=== PATIENT | female | born 1955 | race Hispanic/Latino ===

== ENCOUNTER 2017-05-17 07:18 | Emergency (ER) | payer OTHER ==
--- NOTE | 2017-05-17 07:27 | ED.PDOC ---
History of Present Illness - General Stated Complaint: RECTAL PAIN Time Seen by Provider: 05/17/17 07:20 Source: patient Exam Limitations: no limitations Additional Information: PT C/O SEVERE RECTAL PAIN SINCE LAST PM. HX SIGNIFICANT FOR COLON CA WITH RESECTION IN 2010. HAS BEEN CLEAR SINCE. ON 04/14/2017 PT HAD COLOSTOMY REVERSAL. WAS DOING WELL UNTIL 05/13/17 WHEN SHE HAD HER PORT REMOVED. SHE DEVELOPED SOME RECTAL PAIN AFTER SURGERY BUT BECAME MUCH MORE SEVERE LAST PM. PAIN IS SHARP, SPASMOTIC IN NATURE. - History of Present Illness Timing/Duration: other - LAST NIGHT Severity: severe Improving Factors: nothing Associated Symptoms: denies symptoms Allergies/Adverse Reactions: Allergies NO KNOWN ALLERGY Allergy (Unverified 05/17/17 07:33) Home Medications: Ambulatory Orders Albuterol 2 mg/5 ml [Proventil] 1 neb 05/17/17 Docusate Sodium [Colace Cap] 100 mg PO BID 05/17/17 HYDROcodone 10MG/APAP 325MG [[facility] 10/325] 2 tablet PO Q4HR 05/17/17 Insulin Glargine [Lantus Solostar] 60 units SC DAILY 05/17/17 Lidocaine 4% Topical [Xylocaine 4% Topical] 4 % TOP QID PRN #1 bttl 05/17/17 Lisinopril 2.5 mg PO DAILY 05/17/17 Loratadine [Claritin] 10 mg PO DAILY 05/17/17 Meloxicam [Mobic] 15 mg PO DAILY 05/17/17 Metformin HCl 1,000 mg PO BID 05/17/17 Review of Systems - Review of Systems Constitutional: Denies: chills, fever EENTM: States: no symptoms reported Respiratory: States: no symptoms reported Cardiology: States: no symptoms reported Gastrointestinal/Abdominal: States: constipation. Denies: abdominal pain, diarrhea, nausea, vomiting Genitourinary: States: no symptoms reported. Denies: dysuria, frequency, hematuria Skin: States: no symptoms reported Neurological: States: no symptoms reported Endocrine: States: no symptoms reported Hematologic/Lymphatic: States: no symptoms reported Past Medical History (General) - Patient Medical History Hx Seizures: No Hx Stroke: No Hx Dementia: No Hx Asthma: No Hx of COPD: No Hx Cardiac Disorders: No Hx Congestive Heart Failure: No Hx Pacemaker: No Hx Hypertension: Yes Hx Thyroid Disease: No Hx Diabetes: Yes Hx Gastroesophageal Reflux: No Hx Renal Disease: No Hx Cancer: Yes - colon ca- 2010 Hx of HIV: No Hx Hepatitis C: No Hx MRSA: No - Vaccination History Hx Tetanus, Diphtheria Vaccination: Yes Hx Influenza Vaccination: No Hx Pneumococcal Vaccination: No - Social History Hx Tobacco Use: No Hx Chewing Tobacco Use: No Hx Alcohol Use: No Hx Substance Use: No Hx Substance Use Treatment: No Hx Depression: No Hx Physical Abuse: No Hx Emotional Abuse: No Hx Suspected Abuse: No - Female History Patient : No Family Medical History - Family History Mother Family History: Unknown Living Status: Still Living Hx Family Hypertension: Yes Physical Exam - Physical Exam General Appearance: Anxious, Other - MOD DISTRESS Eye Exam: bilateral normal Ears, Nose, Throat: hearing grossly normal, normal ENT inspection Neck: non-tender, full range of motion Respiratory: lungs clear, normal breath sounds, no respiratory distress Cardiovascular/Chest: regular rate, rhythm, no murmur Gastrointestinal/Abdominal: normal bowel sounds, non tender, soft, other - WELL HEALING SURGICAL INCISION IN MIDLINE, CLEAN AND DRY, COLOSTOMY SITE LLQ WITH GOOD GRANULATION TISSUE. Rectal Exam: other - MOD AMOUNT OF SOFT STOOL IN VAULT WITH MOD-SEVERE TTP. NO MASSES Back Exam: normal inspection, no CVA tenderness, no vertebral tenderness Extremity: normal range of motion, normal inspection Neurologic: no motor/sensory deficits, normal mood/affect Skin Exam: normal color, warm/dry Lymphatic: no adenopathy Progress - Progress Progress: 05/17/17 09:29 FEELS BETTER, RESTING QUIETLY, ABDOMEN MINIMAL LLQ TTP, NON SURGICAL. PAGED DR MICHAEL PT'S SURGEON. 05/17/17 09:35 D/W DR MICHAEL, OK FOR LAXATIVE BY MOUTH, TOPICAL LIDOCAINE, - EKG/XRAY/CT XRAY: abdomen - NO FREE AIR, NO OBSTRUCTION, MOD STOOL Departure - Departure Clinical Impression: History of colostomy reversal, Diabetes 1.5, managed as type 2 Constipation Qualifiers: Constipation type: slow transit constipation Qualified Code(s): K59.01 - Slow transit constipation Hypertension Qualifiers: Hypertension type: essential hypertension Qualified Code(s): I10 - Essential ( primary) hypertension Time of Disposition: 09:41 Disposition: Discharge to Home or Self Care Condition: Good Instructions: Constipation Referrals: Nabila Parker NP [Primary Care Provider] - 1-2 Weeks Prescriptions: Lidocaine 4% Topical [Xylocaine 4% Topical] 4 % TOP QID PRN #1 bttl PRN Reason: Rectal Pain Or Itching Home Medications: Ambulatory Orders Albuterol 2 mg/5 ml [Proventil] 1 neb 05/17/17 Docusate Sodium [Colace Cap] 100 mg PO BID 05/17/17 HYDROcodone 10MG/APAP 325MG [[facility] 10/325] 2 tablet PO Q4HR 05/17/17 Insulin Glargine [Lantus Solostar] 60 units SC DAILY 05/17/17 Lidocaine 4% Topical [Xylocaine 4% Topical] 4 % TOP QID PRN #1 bttl 05/17/17 Lisinopril 2.5 mg PO DAILY 05/17/17 Loratadine [Claritin] 10 mg PO DAILY 05/17/17 Meloxicam [Mobic] 15 mg PO DAILY 05/17/17 Metformin HCl 1,000 mg PO BID 05/17/17 Additional Instructions: USE MAGNESIUM CITRATE 1/2 BOTTLE. IF NO RESULTS IN 4 HOURS USE SECOND HALF OF BOTTLE.
[2017-05-17] MEDS ORDERED: fentaNYL CITRATE INJ 50 MCG/ML AMP IV ONE (07:36)
[2017-05-17] MEDS ORDERED: ONDANSETRON INJ 4 MG/2 ML VIAL ONE (08:04)
[2017-05-17 08:46] VITALS: TEMP 97
--- NOTE | 2017-05-17 09:06 | RAD ---
EXAM DESCRIPTION: Chest,1 View CLINICAL HISTORY: ABDOMINAL PAIN COMPARISON: 05 July 2016 TECHNIQUE: AP portable chest FINDINGS: The lungs are clear. There is no infiltrate or effusion. The heart is normal size. IMPRESSION: Normal portable chest Electronically signed by: Alirio Quick MD 05/17/2017 9:05 AM CDT
--- NOTE | 2017-05-17 09:06 | RAD ---
EXAM DESCRIPTION: Abdomen Flat Upright CLINICAL HISTORY: ABDOMINAL PAIN COMPARISON: CT abdomen and pelvis dated 18 Jan 2015 TECHNIQUE: AP supine and upright views of the abdomen. FINDINGS: Surgical clips are seen in the right upper quadrant. The bowel gas pattern is unremarkable. No free air is observed. No organomegaly is detected. Surgical clips are seen in the left lower quadrant. No pathologic calcifications are observed. IMPRESSION: Unremarkable abdomen. Electronically signed by: Alirio Quick MD 05/17/2017 9:04 AM CDT
[2017-05-17 10:01] VITALS: BP 118/74; O2SAT 98
== END 2017-05-17 10:01 | disposition home or self-care (01) ==
LOC: ER 07:18
DX: K59.01 Slow transit constipation (principal); E11.9 Type 2 diabetes mellitus without complications; I10 Essential (primary) hypertension; Z85.038 Personal history of other malignant neoplasm of large intestine; Z79.4 Long term (current) use of insulin; Z79.899 Other long term (current) drug therapy
CPT/HCPCS: 36415; 71010; 74010; 80053; 82270; 85025; J3010

== ENCOUNTER → 2018-08-09 | Outpatient (CLI) | payer OTHER ==
--- NOTE | 2018-08-09 18:11 | MAM ---
EXAM DESCRIPTION: 3D Screening BILATERAL : Digital Mammography. CLINICAL HISTORY: 63 years Female SCREENING . No complaints. No personal or family history of breast cancer. Childbirth. Postmenopausal. No HRT.. Lifetime risk of developing breast cancer (Tyrer-Cuzick model)(%): 6.4. COMPARISON: 2-D digital screening bilateral mammography 06/24/2016.. TECHNIQUE: Bilateral CC and MLO projection full-field images, digital tomosynthesis mammographic technique. Bilateral digital 2-D full-field MLO images. CAD not available for tomosynthesis or 2-D images. FINDINGS: The breast parenchymal density pattern is: Scattered areas of fibroglandular density. No skin thickening or nipple retraction. Bilateral solitary microcalcifications. Slightly increased bilaterally since the prior study. Left axillary lymph node. Medication port no longer seen overlying the left pectoral muscle. No new focal, stellate mass or density, focal asymmetry , and no suspicious microcalcifications bilaterally. Stable mammograms compared to prior study. Taking into account, differences in mammographic technique. IMPRESSION: Benign exam. BIRAD CATEGORY: 2 BENIGN FINDINGS. RECOMMENDATIONS: FOLLOW UP: Routine digital bilateral mammographic screening, one year interval from August 2018. Written communication explaining the IMPRESSION and follow-up, will be mailed to the patient and referring health care provider. According to the [employer], yearly mammograms are recommended starting at age 40 and continuing as long as a woman is in good health. Any breast change noted on a breast self-exam should be reported promptly to the patient's healthcare provider. Breast MRI is recommended for women with an approximately 20-25% or greater lifetime risk of breast cancer, including women with a strong family history of breast or ovarian cancer and women who have been treated for Hodgkin's disease. A negative mammographic report should not delay tissue diagnosis in patients with significant clinical history or physical findings. Extremely dense breast tissue limits the sensitivity of digital mammography. Electronically signed by: Jian Machado MD 08/09/2018 6:10 PM HEALTH [employer]OM[employer]ION EDUCATOR
== END ==
LOC: MAMMO 09:00
PROVIDERS: ATTEND Family Medicine
DX: Z12.31 Encounter for screening mammogram for malignant neoplasm of breast (principal)